=== PATIENT | female | born 1970 | race Caucasian/White ===

== ENCOUNTER 2024-06-19 19:45 | Day surgery (SDC) | payer OTHER ==
--- NOTE | 2024-06-19 20:29 | ED Physician Documentation ---
History of Present Illness - Stated complaint Stated Complaint: abd pain - Chief complaint Chief Complaint: Fever - Additonal information Additional information: 53-year-old female with history of renal calculi no other pertinent past medical history presents emergency department for severe left flank pain. Patient says that she made a large vegetable salad yesterday and was worried that maybe that caused some GI discomfort and upset. She said that she slept for about 14 hours today and has been having fevers and chills at home with little to no relief in symptoms. No dysuria no urinary urgency she does endorse and nausea and vomit ing. 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 : None HEENT: None Psych: None Musculoskeletal: None Derm: None - Past Surgical History Past Surgical History: No - Present Medications Home Medications: Ambulatory Orders Medication Instructions Recorded Confirmed No Known Home Medications 06/19/24 06/19/24 - Allergies Allergies/Adverse Reactions: Allergies Allergy/AdvReac Type Severity Reaction Status Date / Time No Known Drug Allergies Allergy Verified 06/19/24 20:21 - Social History Does the pt smoke?: No Smoking Status: Never smoker Does the pt drink ETOH?: No Does the pt have substance abuse?: No - Immunizations Immunizations are current?: Yes - POLST Patient has POLST: No PD ED PE NORMAL - Vitals Vital signs reviewed: Yes - General General: Alert and oriented X 3, No acute distress, Well developed/nourished - Cardiac Cardiac: RRR - Respiratory Respiratory: No respiratory distress, Clear bilaterally - Abdomen Abdomen: Other (Left mid quadrant tenderness) - Back Back: Other (Left CVA tenderness) Results - Vitals Vitals: Vital Signs - 24 hr 06/19/24 06/19/24 20:11 21:57 Temperature 37.7 C 37 C Heart Rate 114 H 100 Respiratory 17 18 Rate Blood Pressure 143/81 H 147/92 H O2 Saturation 97 98 Oxygen O2 Source Room air - Labs Labs: Laboratory Tests 06/19/24 06/19/24 06/19/24 20:16 20:16 20:37 WBC RBC Hgb Hct MCV MCH MCHC RDW Plt Count MPV Neut # (Auto) Lymph # (Auto) [place] # (Auto) Eos # (Auto) Baso # (Auto) Absolute Nucleated RBC Nucleated RBC % Sodium Potassium Chloride Carbon Dioxide Anion Gap BUN Creatinine Estimated GFR (MDRD) Glucose Calcium Total Bilirubin AST ALT Alkaline Phosphatase Total Protein Albumin Globulin Albumin/Globulin Ratio Lipase Urine Color LIGHT YELLOW Urine Clarity CLEAR Urine pH 7.0 Ur Specific [place] 1.015 Urine Protein NEGATIVE Urine Glucose (UA) NEGATIVE Urine Ketones TRACE Urine Occult Blood SMALL H Urine Nitrite NEGATIVE Urine Bilirubin NEGATIVE Urine Urobilinogen 0.2 (NORMAL) Ur Leukocyte Esterase NEGATIVE Urine RBC 0-5 Urine WBC 0-3 Ur Squamous Epith Cells RARE Squamous Urine Bacteria None Seen Ur Microscopic Review INDICATED Urine Culture Comments NOT INDICATED Nasal Adenovirus (PCR) NOT DETECTED Nasal B. parapertussis DNA (PCR) NOT DETECTED Nasal Coronavir 229E PCR NOT DETECTED Nasal Coronavir HKU1 PCR NOT DETECTED Nasal Coronavir NL63 PCR NOT DETECTED Nasal Coronavir OC43 PCR NOT DETECTED Nasal Enterovir/Rhinovir PCR NOT DETECTED Nasal Influenza B PCR NOT DETECTED Nasal Influenza A PCR NOT DETECTED Nasal Parainfluen 1 PCR NOT DETECTED Nasal Parainfluen 2 PCR NOT DETECTED Nasal Parainfluen 3 PCR NOT DETECTED Nasal Parainfluen 4 PCR NOT DETECTED Nasal RSV (PCR) NOT DETECTED Nasal B.pertussis DNA PCR NOT DETECTED Nasal C.pneumoniae (PCR) NOT DETECTED [place] Human Metapneumo PCR NOT DETECTED Nasal M.pneumoniae (PCR) NOT DETECTED Nasal SARS-CoV-2 (PCR) NOT DETECTED Group A Strep Rapid Negative 06/19/24 06/19/24 20:42 20:42 WBC 13.5 H RBC 4.45 Hgb 14.4 Hct 43.9 MCV 98.7 MCH 32.4 H MCHC 32.8 RDW 12.1 Plt Count 197 MPV 10.2 Neut # (Auto) 11.6 H Lymph # (Auto) 0.8 L [place] # (Auto) 0.9 Eos # (Auto) 0.1 Baso # (Auto) 0.0 Absolute Nucleated RBC 0.00 Nucleated RBC % 0.0 Sodium 135 Potassium 4.5 Chloride 103 Carbon Dioxide 26 Anion Gap 6.0 BUN 13 Creatinine 1.4 H Estimated GFR (MDRD) 39 L Glucose 123 H Calcium 9.4 Total Bilirubin 0.5 AST 15 ALT 14 Alkaline Phosphatase 88 Total Protein 7.1 Albumin 4.4 Globulin 2.7 Albumin/Globulin Ratio 1.6 Lipase 13 Urine Color Urine Clarity Urine pH Ur Specific [place] Urine Protein Urine Glucose (UA) Urine Ketones Urine Occult Blood Urine Nitrite Urine Bilirubin Urine Urobilinogen Ur Leukocyte Esterase Urine RBC Urine WBC Ur Squamous Epith Cells Urine Bacteria Ur Microscopic Review Urine Culture Comments Nasal Adenovirus (PCR) Nasal B. parapertussis DNA (PCR) Nasal Coronavir 229E PCR Nasal Coronavir HKU1 PCR Nasal Coronavir NL63 PCR Nasal Coronavir OC43 PCR Nasal Enterovir/Rhinovir PCR Nasal Influenza B PCR Nasal Influenza A PCR Nasal Parainfluen 1 PCR Nasal Parainfluen 2 PCR Nasal Parainfluen 3 PCR Nasal Parainfluen 4 PCR Nasal RSV (PCR) Nasal B.pertussis DNA PCR Nasal C.pneumoniae (PCR) [place] Human Metapneumo PCR Nasal M.pneumoniae (PCR) Nasal SARS-CoV-2 (PCR) Group A Strep Rapid - Rads (name of study) CT abdomen pelvis with con Relevant Findings:: Final report received, EMP independent interpretation of test, Other (Left obstructing renal calculi at the UPJ measuring 1.5 x 0.9 cm with hydronephrosis. Warm calcified nodule adjacent to the left adrenal gland measuring 4 cm could be sequelae of prior adrenal hemorrhage second small left adrenal nodule measuring 1 cm indeterminate) PD Medical Decision Making - ED course ED course: 53-year-old female presents emergency department for left flank pain. Labs are complete for further evaluation she does appear to have some leukocytosis, 13.5 she also appears to have an acute kidney injury, creatinine 1.4, GFR 39 no other acute lab abnormalities no electrolyte abnormalities no anemia. Urinalysis has small occult blood no leukocytes or nitrates but urine was sent for further cultures. Respiratory swab negative and group A rapid strep negative as patient was concerned about possible sore throat upon initial arrival to the emergency department. CT abdomen pelvis with contrast was completed for further evaluation and patient appears to have a obstructing renal calculi at the left UPJ measuring 1.5 x 0.9 cm with moderate left hydronephrosis. She also appears to have rim calcified nodule adjacent to the left adrenal gland measuring 4 cm and this was not previously seen on imaging. I spoke with Dr. Jett Vasquez who has agreed to do intervention on the patient tomorrow he is asked that I collect blood cultures which have been complete and start patient on ceftriaxone which has also been complete here in the emergency department. Unfortunately the hospital is full we have no inpatient beds so patient will be boarding here in the emergency department overnight. Patient is aware of this plan report given to oncoming physician due to change of shift. Departure - Departure Disposition: ED Transfer to [facility] Clinical Impression: Renal calculi, Hydronephrosis with renal calculous obstruction, OLVIN (acute kidney injury) Forms: PCP List
[2024-06-19 20:40] LABS: BILIRUBIN,URINE NEGATIVE (NEGATIVE); GLUCOSE, URINE (UA) NEGATIVE (NEGATIVE); KETONES,URINE (UA) TRACE mg/dL (NEGATIVE); LEUKOCYTE ESTERASE, URINE NEGATIVE (NEGATIVE); NITRITE,URINE NEGATIVE (NEGATIVE); OCCULT BLOOD,URINE SMALL (NEGATIVE); PROTEIN,URINE NEGATIVE (NEGATIVE); UROBILINOGEN,URINE 0.2 (NORMAL) E.U./dL (NORMAL)
[2024-06-19 20:41] LABS: CLARITY,URINE CLEAR (CLEAR)
[2024-06-19 20:45] LABS: RAPID STREP SCREEN Negative (Negative)
[2024-06-19 20:53] LABS: BACTERIA,URINE None Seen /HPF (None Seen); RBC,URINE 0-5 /HPF (0-5); SQUAMOUS EPITHELIAL CELL,UR RARE Squamous (<= Few); WBC,URINE 0-3 /HPF (0-5)
[2024-06-19 20:55] LABS: BASOPHILS % (AUTO) 0.3 %; EOSINOPHILS # (AUTO) 0.1 10^3/uL (0.0-0.7); EOSINOPHILS % (AUTO) 0.6 %; HCT - HEMATOCRIT 43.9 % (37.0-47.0); HGB - HEMOGLOBIN 14.4 g/dL (12.0-16.0); LYMPHOCYTES # (AUTO) 0.8 10^3/uL (1.5-3.5); MEAN CORPUSCULAR HEMOGLOBIN 32.4 pg (27.0-31.0); MEAN CORPUSCULAR HGB CONC 32.8 g/dL (32.0-36.0); MEAN CORPUSCULAR VOLUME 98.7 fL (81.0-99.0); MEAN PLATELET VOLUME 10.2 fL (7.9-10.8); MONOCYTES # (AUTO) 0.9 10^3/uL (0.0-1.0); NEUTROPHILS # (AUTO) 11.6 10^3/uL (1.5-6.6); NEUTROPHILS % (AUTO) 85.6 %; PLT - PLATELET COUNT 197 10^3/uL (130-450); RED BLOOD COUNT 4.45 10^6/uL (4.20-5.40); RED CELL DISTRIBUTION WIDTH 12.1 % (12.0-15.0); WHITE BLOOD COUNT 13.5 x10^3/uL (4.8-10.8)
[2024-06-19 21:17] LABS: ALBUMIN 4.4 g/dL (3.2-5.5); ALBUMIN/GLOBULIN RATIO 1.6 (1.0-2.2); BILIRUBIN,TOTAL 0.5 mg/dL (0.2-1.0); CALCIUM 9.4 mg/dL (8.5-10.3); CREATININE 1.4 mg/dL (0.6-1.3); POTASSIUM 4.5 mmol/L (3.5-4.5); TOTAL PROTEIN 7.1 g/dL (6.4-8.9)
[2024-06-19] MEDS ORDERED: iohexoL-300 100 ML VIAL ONE (21:19)
[2024-06-19 21:22] LABS: B. PARAPERTUSSIS- RESP PCR PAN NOT DETECTED; B. PERTUSSIS- RESP PCR PANEL NOT DETECTED; C. PNEUMONIAE- RESP PCR PANEL NOT DETECTED; CORONAVIRUS 229E-RESP PCR NOT DETECTED; CORONAVIRUS HKU1-RESP PCR NOT DETECTED; CORONAVIRUS NL63-RESP PCR NOT DETECTED; CORONAVIRUS OC43-RESP PCR NOT DETECTED; HUMAN METAPNEUMOVIRUS NOT DETECTED; INFLUENZA A- RESP PCR PANEL NOT DETECTED; INFLUENZA B - RESP PCR PANEL NOT DETECTED; M. PNEUMONIAE- RESP PCR PANEL NOT DETECTED; PARAINFLUENZA VIRUS 1 NOT DETECTED; PARAINFLUENZA VIRUS 2 NOT DETECTED; PARAINFLUENZA VIRUS 3 NOT DETECTED; PARAINFLUENZA VIRUS 4 NOT DETECTED; RHINOVIRUS/ENTEROVIRUS NOT DETECTED; RSV- RESP PCR PANEL NOT DETECTED; SARS-CoV-2 -RESP PCR PANEL NOT DETECTED
[2024-06-19] MEDS: iohexoL-300 100 ML VIAL IVP ONE (21:30)
[2024-06-19] MEDS: ONDANSETRON 4 MG/2 ML VIAL IVP STA (21:36)
[2024-06-19] MEDS: KETOROLAC 30 MG/ML VIAL IVP STA (21:36)
--- NOTE | 2024-06-19 22:00 | CT Report ---
PROCEDURE: Abdomen/Pelvis W INDICATIONS: LLQ pain CONTRAST: OMNI 300, 100mls TECHNIQUE: After the administration of intravenous contrast, a CT scan of the abdomen and pelvis was performed. Images were recorded and evaluated at appropriate window settings. Reformats: coronal and sagittal. F or radiation dose reduction, the following was used: automated exposure control, adjustment of mA and /or kV according to patient size. COMPARISON: None. FINDINGS: Image quality: Diagnostic. Lower chest: Unremarkable. Liver: No solid mass. Gallbladder: No radiopaque stones or wall thickening. Biliary tree: No intrahepatic or extrahepatic dilation, accounting for age. Spleen: No splenomegaly. Pancreas: No pancreatic ductal dilation. Adrenals: Nodule adjacent to the left adrenal gland with rim calcification measuring 4 cm. This could be the sequelae of prior left adrenal hemorrhage. Left adrenal nodule measuring 1 cm, (2/28). Kidneys and ureters: Obstructing calculus at the left ureteropelvic junction measuring 1.5 x 0.9 cm, (4/81). Moderate left hydronephrosis. The left renal enhancement is diminished compared to the right. No hydroureter. No solid renal mass. Stomach, bowel and peritoneum: No gastric or small bowel dilation. No abnormal wall thickening. No pa thologic free fluid. Normal appendix. Lymph nodes: No central or retroperitoneal adenopathy. Vessels: No infrarenal aortic aneurysm. Patent portal vein. PELVIS Reproductive organs: Anteverted uterus. Bladder: No stone. Pelvic lymph nodes: No pelvic adenopathy by size criteria. Bones: No aggressive osseous abnormality. Other: No significant ventral or inguinal hernia. IMPRESSION: 1. Obstructing calculus at the left UPJ measuring 1.5 x 0.9 cm. Moderate left hydronephrosis. 2. Rim calcified nodule adjacent to the left adrenal gland measuring 4 cm. This could be the sequelae of prior adrenal hemorrhage. Second small left adrenal nodule measuring 1 cm. Indeterminate Reviewed by: Aric Palacio MD on 06/19/2024 9:59 PM PDT Approved by: Aric Palacio MD on 06/19/2024 9:59 PM PDT Station ID: [id number]
[2024-06-19] MEDS ORDERED: cefTRIAXone 1 GM VIAL ONE (22:12)
[2024-06-19] MEDS ORDERED: ACETAMINOPHEN 500 MG TABLET PO PRN (22:13)
[2024-06-19] MEDS: HYDROmorphone 0.5 MG/0.5 ML SYRINGE IVP STA (22:13)
[2024-06-19] MEDS: cefTRIAXone 1 GM in SODIUM CHLORIDE 0.9% MINIBAG 100 ML IV STA (22:14)
[2024-06-20] MEDS: ONDANSETRON 4 MG/2 ML VIAL IVP PRN (03:45)
[2024-06-20] MEDS: KETOROLAC 30 MG/ML VIAL IVP STA (03:45)
[2024-06-20] MEDS: HYDROmorphone 1 MG/ML CARPUJECT IVP STA ×2 (03:46→10:48)
[2024-06-20 05:27] LABS: BASOPHILS # (AUTO) 0.1 10^3/uL (0.0-0.1); BASOPHILS % (AUTO) 0.4 %; EOSINOPHILS # (AUTO) 0.1 10^3/uL (0.0-0.7); EOSINOPHILS % (AUTO) 0.6 %; HCT - HEMATOCRIT 39.7 % (37.0-47.0); HGB - HEMOGLOBIN 12.9 g/dL (12.0-16.0); LYMPHOCYTES # (AUTO) 0.6 10^3/uL (1.5-3.5); LYMPHOCYTES % (AUTO) 5.2 %; MEAN CORPUSCULAR HEMOGLOBIN 31.8 pg (27.0-31.0); MEAN CORPUSCULAR HGB CONC 32.5 g/dL (32.0-36.0); MEAN CORPUSCULAR VOLUME 97.8 fL (81.0-99.0); NEUTROPHILS # (AUTO) 10.6 10^3/uL (1.5-6.6); NEUTROPHILS % (AUTO) 85.4 %; PLT - PLATELET COUNT 157 10^3/uL (130-450); RED BLOOD COUNT 4.06 10^6/uL (4.20-5.40); RED CELL DISTRIBUTION WIDTH 12.2 % (12.0-15.0); WHITE BLOOD COUNT 12.4 x10^3/uL (4.8-10.8)
[2024-06-20 05:44] LABS: CALCIUM 9.2 mg/dL (8.5-10.3); CREATININE 1.4 mg/dL (0.6-1.3); POTASSIUM 4.1 mmol/L (3.5-4.5)
--- NOTE | 2024-06-20 08:18 | CONSULTATION NOTE ---
Referring Provider Name of Referring Provider:: JULIETTE Dalton Consult Date: 06/20/24 Chief Complaint - Chief Complaint Chief Complaint: left flank pain History of Present Illness - Admitted From Admitted From:: ER - History Obtained From Records Reviewed: ER/hospital History obtained from: patient Exam Limitations: none - History of Present Illness HPI Comment/Other: Jordyn is a pleasant 53-year-old woman with history of kidney stones 13 years ago. She passed a 2 mm left UVJ stone in 2010. At the time she was noted to have a large left adrenal gland which was calcified and eggshell calcification. This was consistent with prior hemorrhage or infection. She is not aware of this She presented last night to [facility] ER with 24 hours of nausea and vomiting and left flank pain and subjective fevers. She was afebrile here in the ER. Lab work was notable for a mild leukocytosis of 13,000 and an OLVIN of 1.4. A CT scan showed a 1.5 cm left UPJ stone which is obstructing along with the left adrenal calcified lesion as seen prior Overnight she continues to have pain. She is n.p.o. 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 : reports: None HEENT: reports: None Psych: reports: None Musculoskeletal: reports: None Derm: reports: None MRSA Hx?: No - POLST Patient has POLST: No Meds/Allgy - Home Medications Home Medications: Ambulatory Orders Medication Instructions Recorded Confirmed No Known Home Medications 06/19/24 06/19/24 - Allergies Allergies/Adverse Reactions: Allergies Allergy/AdvReac Type Severity Reaction Status Date / Time No Known Drug Allergies Allergy Verified 06/19/24 20:21 Exam - Vital Signs Reviewed Vital Signs: Yes Vital Signs: Vital Signs x48h Temp Pulse Resp BP Pulse Ox 06/20/24 07:18 37.1 C 88 15 109/91 H 98 06/20/24 06:45 74 14 97/76 97 06/20/24 03:39 141/90 H 06/20/24 03:26 97 18 114/71 99 06/20/24 02:21 88 14 96/68 94 - Physical Exam General Appearance: positive: No acute distress Respiratory: positive: Breath sounds nml Cardiovascular: positive: Regular rate & rhythm Conclusion and Plan - Lab Results Laboratory Results 06/20/24 05:21: Sodium 136, Potassium 4.1, Chloride 105, Carbon Dioxide 23, Anion Gap 8.0, BUN 15, Creatinine 1.4 H, Estimated GFR (MDRD) 39 L, Glucose 109 H, Calcium 9.2 06/20/24 05:21: WBC 12.4 H, RBC 4.06 L, Hgb 12.9, Hct 39.7, MCV 97.8, MCH 31.8 H, MCHC 32.5, RDW 12.2, Plt Count 157, MPV 10.0, Neut # (Auto) 10.6 H, Lymph # (Auto) 0.6 L, [place] # (Auto) 1.0, Eos # (Auto) 0.1, Baso # (Auto) 0.1, Absolute Nucleated RBC 0.00, Nucleated RBC % 0.0 06/19/24 20:42: Sodium 135, Potassium 4.5, Chloride 103, Carbon Dioxide 26, Anion Gap 6.0, BUN 13, Creatinine 1.4 H, Estimated GFR (MDRD) 39 L, Glucose 123 H, Calcium 9.4, Total Bilirubin 0.5, AST 15, ALT 14, Alkaline Phosphatase 88, Total Protein 7.1, Albumin 4.4, Globulin 2.7, Albumin/Globulin Ratio 1.6, Lipase 13 06/19/24 20:42: WBC 13.5 H, RBC 4.45, Hgb 14.4, Hct 43.9, MCV 98.7, MCH 32.4 H, MCHC 32.8, RDW 12.1, Plt Count 197, MPV 10.2, Neut # (Auto) 11.6 H, Lymph # (Auto) 0.8 L, [place] # (Auto) 0.9, Eos # (Auto) 0.1, Baso # (Auto) 0.0, Absolute Nucleated RBC 0.00, Nucleated RBC % 0.0 06/19/24 20:37: Urine Color LIGHT YELLOW, Urine Clarity CLEAR, Urine pH 7.0, Ur Specific [place] 1.015, Urine Protein NEGATIVE, Urine Glucose (UA) NEGATIVE, Urine Ketones TRACE, Urine Occult Blood SMALL H, Urine Nitrite NEGATIVE, Urine Bilirubin NEGATIVE, Urine Urobilinogen 0.2 (NORMAL), Ur Leukocyte Esterase NEGATIVE, Urine RBC 0-5, Urine WBC 0-3, Ur Squamous Epith Cells RARE Squamous, Urine Bacteria None Seen, Ur Microscopic Review INDICATED, Urine Culture Comments NOT INDICATED 06/19/24 20:16: Group A Strep Rapid Negative 06/19/24 20:16: Nasal Adenovirus (PCR) NOT DETECTED, Nasal B. parapertussis DNA (PCR) NOT DETECTED, Nasal Coronavir 229E PCR NOT DETECTED, Nasal Coronavir HKU1 PCR NOT DETECTED, Nasal Coronavir NL63 PCR NOT DETECTED, Nasal Coronavir OC43 PCR NOT DETECTED, Nasal Enterovir/Rhinovir PCR NOT DETECTED, Nasal Influenza B PCR NOT DETECTED, Nasal Influenza A PCR NOT DETECTED, Nasal Parainfluen 1 PCR NOT DETECTED, Nasal Parainfluen 2 PCR NOT DETECTED, Nasal Parainfluen 3 PCR NOT DETECTED, Nasal Parainfluen 4 PCR NOT DETECTED, Nasal RSV (PCR) NOT DETECTED, Nasal B.pertussis DNA PCR NOT DETECTED, Nasal C.pneumoniae (PCR) NOT DETECTED, [place] Human Metapneumo PCR NOT DETECTED, Nasal M.pneumoniae (PCR) NOT DETECTED, Nasal SARS-CoV-2 (PCR) NOT DETECTED - Diagnostic Imaging Results Diagnostic Imaging Results: positive: Read independently - Diagnosis Diagnosis: Left UPJ Stone. Left hydronephrosis. Left flank pain. Left calcified adrenal cyst/lesion - Consultation Note Consultation Note: 53 a woman with symptomatic left 1.5 cm UPJ stone and incidental chronic left adrenal calcified cyst - Plan Plan: N.p.o. IV fluids Pain control Add on for cystoscopy, left ureteral stent placement. The risk, benefits, alternatives were discussed with patient. Specific risks of infection, bleeding, injury to adjacent structures, need for additional procedures were discussed. The patient understands that this will be a temporizing measure and she will need definitive stone management in the future Patient states understanding and consents to the above plan Plan for home after this procedure
[2024-06-20] MEDS ORDERED: iohexoL-240 10 ML VIAL IVP ONE (11:05)
[2024-06-20] MEDS ORDERED: LIDOCAINE 2% URO-JET 5 ML SYRINGE UR ONE (11:05)
--- NOTE | 2024-06-20 11:13 | ANESTHESIA ---
Pre-Anesthesia VS, & Labs - Diagnosis Diagnosis Left UPJ Stone Left hydronephrosis Left flank pain Left calcified adrenal cyst/lesion - Procedure cystoscopy with L stent Vital Signs: Temp Pulse Resp BP Pulse Ox O2 Flow Rate 37.1 C 84 17 116/80 94 06/20/24 07:18 06/20/24 10:25 06/20/24 10:25 06/20/24 10:25 06/20/24 10:25 Height: 4 ft 11 in Weight (kg): 68.039 kg Body Mass Index: 30.2 BMI Classification: Obese - NPO >8 hours - Is Patient ?: No - Lab Results Current Lab Results: Laboratory Tests 06/20/24 05:21: Sodium 136, Potassium 4.1, Chloride 105, Carbon Dioxide 23, Anion Gap 8.0, BUN 15, Creatinine 1.4 H, Estimated GFR (MDRD) 39 L, Glucose 109 H, Calcium 9.2 06/20/24 05:21: WBC 12.4 H, RBC 4.06 L, Hgb 12.9, Hct 39.7, MCV 97.8, MCH 31.8 H , MCHC 32.5, RDW 12.2, Plt Count 157, MPV 10.0, Neut # (Auto) 10.6 H, Lymph # (Auto) 0.6 L, [place] # (Auto) 1.0, Eos # (Auto) 0.1, Baso # (Auto) 0.1, Absolute N ucleated RBC 0.00, Nucleated RBC % 0.0 06/19/24 20:42: Sodium 135, Potassium 4.5, Chloride 103, Carbon Dioxide 26, Anion Gap 6.0, BUN 13, Creatinine 1.4 H, Estimated GFR (MDRD) 39 L, Glucose 123 H, Calcium 9.4, Total Bilirubin 0.5, AST 15, ALT 14, Alkaline Phosphatase 88, Total Protein 7.1, Albumin 4.4, Globulin 2.7, Albumin/Globulin Ratio 1.6, Lipase 13 06/19/24 20:42: WBC 13.5 H, RBC 4.45, Hgb 14.4, Hct 43.9, MCV 98.7, MCH 32.4 H, MCHC 32.8, RDW 12.1, Plt Count 197, MPV 10.2, Neut # (Auto) 11.6 H, Lymph # (Auto) 0.8 L, [place] # (Auto) 0.9, Eos # (Auto) 0.1, Baso # (Auto) 0.0, Absolute Nucleated RBC 0.00, Nucleated RBC % 0.0 Lab results reviewed: Yes Fish Bones: 06/20/24 05:21 06/20/24 05:21 Home Medications and Allergies Home Medications: Ambulatory Orders No Known Home Medications 06/19/24 Active Medications Acetaminophen (Acetaminophen 500 Mg Tablet) 1,000 mg PO Q6H PRN PRN Reason: Mild Pain Or Fever>38c(100.4f) Ondansetron HCl (Ondansetron 4 Mg/2 Ml Vial) 4 mg IVP Q6HR PRN PRN Reason: Nausea / Vomiting Last Admin: 06/20/24 10:48 Dose: 4 mg No Known Home Medications 06/19/24 Allergies/Adverse Reactions: Allergies Allergy/AdvReac Type Severity Reaction Status Date / Time No Known Drug Allergies Allergy Verified 06/19/24 20:21 Anes History & Medical History - Anesthetic History Anesthesia Complications: reports: No previous complications Family history of Anesthesia Complications: Denies Family history of Malignant Hyperthermia: Denies - Medical History Cardiovascular: reports: None Pulmonary: reports: None Gastrointestinal: reports: None Urinary: reports: None Neuro: reports: None Musculoskeletal: reports: None Endocrine/Autoimmune: reports: None Blood Disorders: reports: None Skin: reports: None Smoking Status: Never smoker Psychosocial: reports: Alcohol (rare) History of Cancer?: No - Surgical History Gynecologic: reports: Tubal ligation Exam General: Alert, Oriented x3, Cooperative Dental: WNL Mouth Openin Fingerbreadth Neck Mobility: Normal Mallampati classification: II Thyromental Distance: 4-6 cm Respiratory: Lungs clear, Normal breath sounds, No respiratory distress Cardiovascular: Regular rate Neurological: Normal speech Mental/Cognitive Status: Alert/Oriented X3, Normal for patient Cognitive Status: Within normal limits Plan Anesthesia Type: General Consent for Procedure(s) Verified and Reviewed: Yes Code Status: Attempt Resuscitation ASA classification: 2-Mild systemic disease Is this case an emergency?: Yes
[2024-06-20] MEDS ORDERED: NALOXONE 0.4 MG/ML VIAL IVP PRN (11:15)
[2024-06-20] MEDS ORDERED: METOCLOPRAMIDE 10 MG/2 ML VIAL IVP PRN (11:15)
[2024-06-20] MEDS ORDERED: MORPHINE 2 MG/ML CARPUJECT IVP PRN (11:15)
[2024-06-20] MEDS ORDERED: HYDROmorphone 0.5 MG/0.5 ML SYRINGE IVP PRN (11:15)
[2024-06-20] MEDS ORDERED: ePHEDrine 50 MG/ML VIAL IVP PRN (11:15)
[2024-06-20] MEDS ORDERED: fentaNYL 100 MCG/2 ML VIAL IVP PRN (11:15)
[2024-06-20] MEDS ORDERED: ONDANSETRON 4 MG/2 ML VIAL IVP PRN ×2 (11:15→12:27)
[2024-06-20] MEDS ORDERED: ATROPINE ABBOJECT 1 MG/10 ML SYRINGE IVP PRN (11:15)
[2024-06-20] MEDS ORDERED: fentaNYL 100 MCG/2 ML VIAL ONE (11:24)
[2024-06-20] MEDS ORDERED: MIDAZOLAM 2 MG/2 ML VIAL ONE (11:24)
[2024-06-20] MEDS ORDERED: PROPOFOL 200 MG/20 ML VIAL IVP ONE (11:25)
[2024-06-20] MEDS ORDERED: ROCURONIUM 50 MG/5 ML VIAL ONE (11:50)
[2024-06-20] MEDS ORDERED: LACTATED RINGERS 1,000 ML IV SCH (12:00)
[2024-06-20] MEDS ORDERED: KETOROLAC 30 MG/ML VIAL ONE (12:11)
[2024-06-20] MEDS: LACTATED RINGERS 1,000 ML IV ONE ×2 (12:13)
[2024-06-20] MEDS ORDERED: SUGAMMADEX 200 MG/2 ML VIAL IVP ONE (12:16)
[2024-06-20] MEDS: LACTATED RINGERS 700 ML IV ONE (12:34)
--- NOTE | 2024-06-20 12:39 | OPERATIVE REPORT ---
Operative Report - General Procedure Date: 06/20/24 Planned Procedure: Cystoscopy, left ureteral stent Pre-Op Diagnosis: Left UPJ stone Procedure Performed: Cystoscopy, left ureteral stent Post Op Diagnosis: Left UPJ stone - Procedure Note Primary Surgeon: Pedro Anesthesia Provider: DIXIE Bean Anesthesia Technique: General ET tube Pathology: left kidney urine for culture Estimated Blood Loss (mL): 0 Findings: purulent left kidney urine large radioopaque stone - Other Other Information/Narrative: After informed consent was obtained the patient was brought to the OR and laid in the supine position. The patient was anesthetized per anesthesia protocols and prepped draped in the usual sterile fashion in the dorsolithotomy position. A formal timeout was performed reconfirmed the patient, procedure and laterality. [employer] imaging showed a radiopaque stone in her left UPJ. There was some weak radiopacity of the kidney parenchyma consistent with CT contrast. A 22 Sudanese scope was advanced easily into urinary bladder. Bladder inspected and full and there were no masses, lesions or other concerns. Sensor wires placed up the left ureteral orifice and passed the stone. A 5 Sudanese open-ended ureteral catheter was then placed past the stone. There was immediate hydronephrotic drip which was purulent. A 20 cc specimen was sent for analysis and culture. On imaging there was immediate drainage of the contrast seen in her kidney parenchyma into the collecting system consistent with her blockage being fixed. A sensor wire was replaced and then a 6 Sudanese 22 cm stent was placed with good curling noted in the kidney and good curling noted in the bladder. There was purulent drainage from her stent. The bladder was emptied and a Uro-Jet was placed. This concluded the procedure and the patient tolerated Dominick well. She was brought to the PACU without further incident. She will likely go home later today if doing okay and will follow-up for definitive stone management in the future
[2024-06-20] MEDS: LIDOCAINE 2% URO-JET 5 ML SYRINGE UR ONE (12:43)
[2024-06-20] MEDS ORDERED: cefTRIAXone 1 GM in SODIUM CHLORIDE 0.9% MINIBAG 100 ML IV SCH (13:00)
[2024-06-20] MEDS: cefTRIAXone 1 GM VIAL ONE (13:01)
--- NOTE | 2024-06-20 13:11 | Discharge Plan ---
Discharge Plan Problem Reviewed?: Yes Disposition: Home, Self Care Condition: Good Prescriptions: Cefdinir 300 mg PO BID #20 cap Docusate Sodium 100Mg Capsule [Colace 100Mg Capsule] 100 mg PO DAILY #14 cap HYDROcod/ACETAM 5/325 [[place] 5/325] 1 tab PO Q4H PRN #10 tablet PRN Reason: Pain Ondansetron Odt [Zofran Odt] 4 mg TL Q6H PRN #10 tablet PRN Reason: Nausea / Vomiting Diet: Regular Activity Restrictions: No Restrictions Shower Restrictions: No Driving Restrictions: No Instruction Topics: Stents Ureteral Additional Instructions or Follow Up instructions: You will be contacted for follow-up with Dr. Vasquez in the next 1 to 2 weeks. No Smoking: If you smoke, Please STOP! Call for help. Follow-up with: Jett Vasquez MD [Provider Admit Priv/Credential] -
[2024-06-20] MEDS ORDERED: HYDROcod/ACETAM 5/325 MG TABLET ONE (13:20)
[2024-06-20] MEDS: HYDROcod/ACETAM 5/325 MG TABLET PO PRN (13:22)
[2024-06-20] MEDS ORDERED: ONDANSETRON 4 MG/2 ML VIAL ONE (13:26)
--- NOTE | 2024-06-20 14:16 | ANESTHESIA POST OP EVALUATION ---
Anesthesia Post Eval - Post Anesthesia Eval Vitals: Last Vital Signs Temp 36 C L 06/20/24 13:13 Pulse 72 06/20/24 14:00 Resp 16 06/20/24 14:00 BP 121/70 06/20/24 14:00 Pulse Ox 96 06/20/24 14:00 O2 Flow Rate CV Function Including HR & BP: Stable Pain Control: Satisfactory Nausea & Vomiting: Negative Mental Status: Baseline Respiratory Status: Airway Patent Hydration Status: Satisfactory Anesthesia Complications: None
[2024-06-20] MEDS ORDERED: PROMETHAZINE INJ 12.5 MG in SODIUM CHLORIDE 0.9% 50 ML IV PRN (14:51)
--- NOTE | 2024-06-20 15:05 | ANESTHESIA POST OP EVALUATION ---
Anesthesia Post Eval - Post Anesthesia Eval Vitals: Last Vital Signs Temp 36 C L 06/20/24 15:00 Pulse 68 06/20/24 15:00 Resp 16 06/20/24 15:00 BP 118/69 06/20/24 15:00 Pulse Ox 93 06/20/24 15:00 O2 Flow Rate CV Function Including HR & BP: Stable Pain Control: Satisfactory Nausea & Vomiting: Addtional Therapies Ordered Mental Status: Baseline, Patient Participates Respiratory Status: Airway Patent Hydration Status: Satisfactory Anesthesia Complications: None
[2024-06-20] MEDS: PROMETHAZINE 25 MG/1 ML VIAL ONE (15:06)
--- NOTE | 2024-06-20 15:18 | XRAY Report ---
PROCEDURE: OR C-Arm Procedure INDICATIONS: Ureteral Stent placement FLUORO TIME: 0.2 min 48.37 uGym2 TECHNIQUE: Intraoperative fluoroscopic images of the labeled left pelvis. COMPARISON: CT abdomen pelvis 06/19/2024 FINDINGS: Intraoperative fluoroscopic images of the left pelvis demonstrate catheter with contrast opacificatio n. Left kidney demonstrates hydronephrosis. IMPRESSION: Intraoperative retrograde pyelogram with hydronephrosis. Reviewed by: Jasmin Vásquez MD on 06/20/2024 3:17 PM PDT Approved by: Jasmin Vásquez MD on 06/20/2024 3:17 PM PDT Station ID: [id number]
[2024-06-20 15:47] VITALS: BP 110/73; O2SAT 95
== END 2024-06-20 08:25 | disposition home or self-care (01) ==
LOC: ED 19:45 → SDS 06-20 08:24
PROVIDERS: ATTEND Urology
DX: N13.2 Hydronephrosis with renal and ureteral calculous obstruction (principal); N17.9 Acute kidney failure, unspecified; E27.8 Other specified disorders of adrenal gland; J02.9 Acute pharyngitis, unspecified; E66.9 Obesity, unspecified; Z68.30 Body mass index [BMI] 30.0-30.9, adult
CPT/HCPCS: 36415; 52332; 74177; 80048; 80053; 81001; 83690; 85025; 87040; 87070; 87086; 87430; 87633; 96365; 96375; 96376; 99285; A9270; C1758; C2617; J1170; J7040; J7120; Q9967; 81003; Q9966

== ENCOUNTER 2024-07-01 08:54 | Day surgery (SDC) | payer OTHER ==
[~2024-07-01 08:54] MED LIST: ceFAZolin 2 GM VIAL ONE
[2024-07-01] MEDS: LACTATED RINGERS 1,000 ML IV ONE (09:12)
[2024-07-01 09:24] LABS: HCG UR QUAL NEGATIVE
[2024-07-01] MEDS ORDERED: NALOXONE 0.4 MG/ML VIAL IVP PRN (12:33)
[2024-07-01] MEDS ORDERED: ePHEDrine 50 MG/ML VIAL IVP PRN (12:33)
[2024-07-01] MEDS ORDERED: MORPHINE 2 MG/ML CARPUJECT IVP PRN (12:33)
[2024-07-01] MEDS ORDERED: ATROPINE ABBOJECT 1 MG/10 ML SYRINGE IVP PRN (12:33)
[2024-07-01] MEDS ORDERED: fentaNYL 100 MCG/2 ML VIAL IVP PRN (12:33)
[2024-07-01] MEDS ORDERED: HYDROmorphone 0.5 MG/0.5 ML SYRINGE IVP PRN (12:33)
[2024-07-01] MEDS ORDERED: METOCLOPRAMIDE 10 MG/2 ML VIAL IVP PRN (12:33)
[2024-07-01] MEDS ORDERED: ONDANSETRON 4 MG/2 ML VIAL IVP PRN (12:33)
--- NOTE | 2024-07-01 12:33 | ANESTHESIA ---
Pre-Anesthesia VS, & Labs - Diagnosis left renal stone - Procedure laser lithotripsy/stent Vital Signs: Temp Pulse Resp BP Pulse Ox O2 Flow Rate 36.5 C 84 19 135/74 H 97 07/01/24 09:16 07/01/24 09:16 07/01/24 09:16 07/01/24 09:16 07/01/24 09:16 Height: 4 ft 11 in Weight (kg): 67.6 kg Body Mass Index: 30.1 BMI Classification: Obese - NPO >8 hours - Is Patient ?: No Home Medications and Allergies Allergies/Adverse Reactions: Allergies Allergy/AdvReac Type Severity Reaction Status Date / Time iodine AdvReac Mild Nausea Verified 07/01/24 09:41 Anes History & Medical History - Anesthetic History Anesthesia Complications: reports: No previous complications - Medical History Cardiovascular: reports: Arrhythmia Pulmonary: reports: None Gastrointestinal: reports: None Urinary: reports: Kidney stones Neuro: reports: None Musculoskeletal: reports: None Endocrine/Autoimmune: reports: None Blood Disorders: reports: None Skin: reports: Rosacea Smoking Status: Never smoker Psychosocial: reports: No issues indicated - Surgical History Gynecologic: reports: Tubal ligation Results - EKG Results EKG Comparison: Reviewed EKG Exam General: Alert, Oriented x3 Dental: WNL Mouth Openin Fingerbreadth Neck Mobility: Normal Mallampati classification: II Thyromental Distance: 4-6 cm Respiratory: Lungs clear Cardiovascular: Regular rate Plan Anesthesia Type: General Consent for Procedure(s) Verified and Reviewed: Yes Code Status: Attempt Resuscitation ASA classification: 2-Mild systemic disease Is this case an emergency?: No
[2024-07-01] MEDS ORDERED: fentaNYL 100 MCG/2 ML VIAL ONE ×2 (12:40→13:23)
[2024-07-01] MEDS ORDERED: MIDAZOLAM 2 MG/2 ML VIAL ONE (12:40)
[2024-07-01] MEDS ORDERED: PHENYLEPHRINE HCL 0.5 MG/5 ML AMPULE ONE (12:55)
[2024-07-01] MEDS ORDERED: LACTATED RINGERS 1,000 ML IV SCH (13:00)
[2024-07-01] MEDS ORDERED: LIDOCAINE 2% URO-JET 5 ML SYRINGE UR ONE (13:20)
[2024-07-01] MEDS ORDERED: ONDANSETRON 4 MG/2 ML VIAL ONE (13:24)
[2024-07-01] MEDS ORDERED: KETOROLAC 30 MG/ML VIAL ONE (13:24)
[2024-07-01] MEDS ORDERED: HYDROcod/ACETAM 5/325 MG TABLET PO PRN (13:38)
--- NOTE | 2024-07-01 13:42 | Discharge Plan ---
Discharge Plan Problem Reviewed?: Yes Disposition: Home, Self Care Condition: Good Prescriptions: Docusate Sodium 100Mg Capsule [Colace 100Mg Capsule] 100 mg PO DAILY #14 cap oxyCODONE [Roxicodone] 5 mg PO Q4H PRN #10 tablet PRN Reason: Pain Diet: Regular Activity Restrictions: Additional Comments (as instructed) Shower Restrictions: No Driving Restrictions: No Instruction Topics: Stents Ureteral Additional Instructions or Follow Up instructions: You will be contacted for follow-up with Dr. Vasquez in 3 months time No Smoking: If you smoke, Please STOP! Call for help. Follow-up with: Jett Vasquez MD [Provider Admit Priv/Credential] -
[2024-07-01] MEDS: LACTATED RINGERS 250 ML IV ONE (13:44)
--- NOTE | 2024-07-01 13:45 | OPERATIVE REPORT ---
Operative Report - General Procedure Date: 07/01/24 Planned Procedure: Cystoscopy, left ureteroscopy, laser lithotripsy, stent exchange Pre-Op Diagnosis: Left kidney stone Procedure Performed: Cystoscopy, left ureteroscopy, laser lithotripsy, stent exchange Post Op Diagnosis: Left kidney stone - Procedure Note Primary Surgeon: Pedro Anesthesia Provider: DIXIE Romero Anesthesia Technique: General LMA Pathology: left kidney stone Estimated Blood Loss (mL): 0 Findings: left 14mm UPJ stone, radioopaque Large eggshell calcified perirenal mass Complications: none - Other Other Information/Narrative: After informed consent was obtained the patient brought the OR and laid in the supine position. The patient was Necaise procedure protocols and prepped draped usual sterile fashion in dorsolithotomy addition. Formal timeout was performed reconfirmed the patient, procedure and laterality. A 22 [place] scope was Paula easily into urinary bladder. Bladder inspected and full there are no masses, lesions or other concerns except for a stent emanating from the left ureteral orifice. 2 sensor wires were placed next to the stent up into the kidney. The old stent was then grasped and removed. A 12 x 1424 cm ureteral access sheath was placed over 1 wire up into the proximal ureter. A flush ureteroscope was advanced over this up into the kidney. Under fluoroscopic answer can see that she had a radiopaque 14 mm UPJ stone. She also had a large 5 cm calcified eggshell like mass in her perirenal area consistent what was seen with CT scan. Using a 200 m laser fiber we dusted the stone into small pieces and dust. The stone was yellow and crystalline. It was quite hard. This was performed at a rate of 8 and a power of 0.8. A basket was then used to grasp any stones of size and were sent for analysis. Only dust remained. The ureter was cleared under direct visualization. There was no stone seen on fluoroscopy. A 6 [place] 22 cm stent was placed with good curling noted in the kidney and good curling noted in the bladder. A Uro-Jet was placed. The stent was on a string and this was taped using a Tegaderm to her lower abdomen. This concluded the procedure and the patient tolerated the procedure well. She was brought to the PACU without further incident. She will remove the stent 3 days time follow-up in 3 months time
[2024-07-01 14:55] VITALS: BP 119/64; O2SAT 99
--- NOTE | 2024-07-01 15:24 | ANESTHESIA POST OP EVALUATION ---
Anesthesia Post Eval - Post Anesthesia Eval Vitals: Last Vital Signs Temp 36.1 C L 07/01/24 14:15 Pulse 78 07/01/24 14:49 Resp 18 07/01/24 14:49 BP 119/64 07/01/24 14:49 Pulse Ox 99 07/01/24 14:49 O2 Flow Rate CV Function Including HR & BP: Stable Pain Control: Satisfactory Nausea & Vomiting: Negative Mental Status: Baseline Respiratory Status: Airway Patent Hydration Status: Satisfactory Anesthesia Complications: None
--- NOTE | 2024-07-01 16:05 | XRAY Report ---
PROCEDURE: OR C-Arm Procedure INDICATIONS: stent exchange FLUORO TIME: 12:22 TECHNIQUE: Intraoperative fluoroscopic images during urologic procedure. COMPARISON: None. FINDINGS: Intraoperative fluoroscopic images of the left abdomen during stent exchange. IMPRESSION: Intraoperative fluoroscopic images of the left abdomen during ureteral stent exchange. Reviewed by: Cam Gamez MD on 07/01/2024 4:04 PM PDT Approved by: Cam Gamez MD on 07/01/2024 4:04 PM PDT Station ID: [id number]
== END 2024-07-01 08:55 | disposition home or self-care (01) ==
LOC: SDS 08:54
PROVIDERS: ATTEND Urology
DX: N20.1 Calculus of ureter (principal); E66.9 Obesity, unspecified; Z68.30 Body mass index [BMI] 30.0-30.9, adult; N28.89 Other specified disorders of kidney and ureter
CPT/HCPCS: 52356; 81025; 82365; C1758; C2617; J2372; J7120